=== PATIENT | female | born 1980 | race African-American/Black ===

== ENCOUNTER 2025-05-31 22:02 | Emergency (ER) | payer MEDICAID ==
[~2025-05-31] VITALS: Ht 165.1 cm; Wt 73.0 kg
[2025-05-31 22:06] VITALS: O2SAT 96
[2025-05-31] MEDS ORDERED: IBUP-2029 MT (23:18)
[2025-05-31] MEDS: IBUPROFEN 600MG TABLET PO ONE (23:28)
[2025-05-31 23:34] VITALS: BP 145/90; PULSE 98; RESP 18; TEMP 36.8; O2SAT 96
== END 2025-05-31 23:39 | disposition home or self-care (01) ==
LOC: ER 22:27
DX: S93.402A Sprain of unspecified ligament of left ankle, initial encounter (principal); I10 Essential (primary) hypertension; W01.0XXA Fall on same level from slipping, tripping and stumbling without subsequent striking against object, initial encounter; Y93.89 Activity, other specified; Y92.89 Other specified places as the place of occurrence of the external cause; Y99.8 Other external cause status
CPT/HCPCS: 99283; 73560; A6449